=== PATIENT | male | born 1985 | race Caucasian/White ===

== ENCOUNTER → 2017-11-26 | Outpatient (CLI) | payer SELFPAY ==
[2017-11-26 08:50] LABS: COLLECTION METHOD DRY COLLECTION; SPECIMEN CONTAINER POLYPROPYLENE CUP; SPERM MORPHOLOGY SENT TO REFERENC LAB
[2017-11-26 10:32] LABS: COLLECTION SITE ON-SITE; DAYS ABSTINENT 4 DAYS (2-7); ROUND CELL CONC. 2.1 X10^6/mL (<5.1); SA DILUTION CNT 1 567; SA DILUTION CNT 2 548; SA DILUTION FACTOR 3; SA NONMOTILE COUNT1 508; SA NONMOTILE COUNT2 472; SA ROUND CELL COUNT1 21; SA ROUND CELL COUNT2 21; SA SPERM MOTILE CONC 118.3 X10^6mL; SEMEN TESTING TIME 925; SPERM CONCENTRATION 167.3 X10^6/mL (>12.0); TOTAL SPERM COUNT 501.9 X10^6 (>33.0)
[2017-11-26 10:33] LABS: SPERM PROGRESSION 4
== END ==
LOC: LAB 08:21
PROVIDERS: ATTEND Obstetrics & Gynecology
DX: N46.9 Male infertility, unspecified (principal)
CPT/HCPCS: 89320